=== PATIENT | male | born 1960 | race African-American/Black ===

== ENCOUNTER 2016-11-07 05:00 | Emergency (ER) | payer MEDICAID ==
[~2016-11-07] VITALS: Ht 182.9 cm; Wt 106.8 kg
[2016-11-07] MEDS ORDERED: INDOMETHACIN 25 MG CAPSULE PO ONE (05:30)
[2016-11-07 05:48] LABS: ANION GAP 9 mmol/L (8-16); BASOPHILS % (AUTO) 0.6 % (0.0-2.0); CALCIUM, TOTAL 9.4 mg/dL (8.8-10.5); CARBON DIOXIDE 27 mmol/L (22-29); CHLORIDE 102 mmol/L (98-107); CREATININE 1.18 mg/dL (0.60-1.30); EOSINOPHILS % (AUTO) 4.7 % (1.0-6.0); GLOMERULAR FILTR. RATE CALC > 60 mL/min (>60); HEMATOCRIT 42.8 % (41-53); HEMOGLOBIN 14.7 g/dL (13.5-17.5); LYMPHOCYTES # (AUTO) 1.8 K/uL (1.0-4.8); LYMPHOCYTES % (AUTO) 29.5 % (22.0-44.0); MEAN CORPUSCULAR HEMOGLOBIN 30.5 pg (26.0-34.0); MEAN CORPUSCULAR HGB CONC 34.3 G/dL (31.0-37.0); MEAN CORPUSCULAR VOLUME 89 fL (80-100); MONOCYTES # (AUTO) 0.7 K/uL (0.1-1.0); MONOCYTES % (AUTO) 10.8 % (2.0-9.0); NEUTROPHILS # (AUTO) 3.4 K/uL (1.8-7.7); NEUTROPHILS % (AUTO) 54.4 % (40.0-70.0); PLATELET COUNT (AUTO) 311 K/uL (150-450); POTASSIUM 4.1 mmol/L (3.5-5.1); RED BLOOD CELL COUNT(AUTO) 4.82 MIL/uL (4.50-5.90); RED CELL DISTRIBUTION WIDTH 13.7 % (11.5-14.5); SODIUM SERUM 138 mmol/L (136-145); UREA NITROGEN, BLOOD 17 mg/dL (7-18); WHITE BLOOD COUNT (AUTO) 6.2 K/uL (4.5-11.0)
[2016-11-07 05:51] LABS: URIC ACID 6.7 mg/dL (2.6-7.2)
[2016-11-07] MEDS ORDERED: CloNIDine HCL 0.1 MG TABLET PO ONE ×2 (06:45→07:45)
[2016-11-07 08:19] VITALS: BP 156/117
== END 2016-11-07 08:49 | disposition home or self-care (01) ==
LOC: EMS 05:01
DX: M13.842 Other specified arthritis, left hand (principal); M10.9 Gout, unspecified; F17.210 Nicotine dependence, cigarettes, uncomplicated; F19.90 Other psychoactive substance use, unspecified, uncomplicated
CPT/HCPCS: 29280; 84550; 99285; 99406